=== PATIENT | male | born 1960 ===

== ENCOUNTER 2019-04-04 13:18 | Observation (INO) | payer BC ==
[~2019-04-04 13:18] MED LIST: Sodium Chloride 0.9% 10 ML Syringe FLUSH PRN
--- NOTE | 2019-04-04 13:18 | EDM.PDOC ---
ED HPI GENERAL MEDICAL PROBLEM - General Chief Complaint: Diabetic Complaint Stated Complaint: AMBULANCE Time Seen by Provider: 04/04/19 13:18 Source of Information: Reports: Patient, EMS, EMS Notes Reviewed, RN, RN Notes Reviewed History Limitations: Reports: Altered Mental Status - History of Present Illness INITIAL COMMENTS - FREE TEXT/NARRATIVE: Pt to ER per [facility]. Patient was found wandering in the halls at the [employer] where he works. EMS reports that bystanders reported that the patient appeared confused. Sat down and became unresponsive. Did not fall or hit his head. EMS reports upon arrival BS was 30, gave 1 amp of D50 and BS then was 477. En route, BS was 157. Upon arrival to the ER BS 152. EMS reports the patient was not answering questions for them, in and out of consciousness with snoring respirations. Pt is known Type 1 DM. Upon arrival pt is easily arousable. States he thinks he mixed his insulins up when he took it at lunch time while eating. Patient incontinent of urine upon arrival. Onset: Today, Sudden - Related Data Allergies Allergy/AdvReac Type Severity Reaction Status Date / Time No Known Allergies Allergy Verified 04/04/19 13:29 Home Meds: Home Meds Aspirin [Lo-Dose Aspirin EC] 81 mg PO DAILY 04/04/19 [History] Escitalopram [Lexapro] 10 mg PO DAILY 04/04/19 [History] Insulin Aspart [NovoLOG] 6 units SQ ASDIRECTED 04/04/19 [History] Insulin Glarg,Human.Rec.Analog [Lantus Solostar] 40 units SQ DAILY 04/04/19 [ History] Lisinopril 10 mg PO DAILY 04/04/19 [History] Omeprazole 20 mg PO DAILY 04/04/19 [History] atorvaSTATin [Lipitor] 40 mg PO DAILY 04/04/19 [History] ED ROS GENERAL - Review of Systems Review Of Systems: ROS reveals no pertinent complaints other than HPI. ED EXAM GENERAL NO PERIP PULSE - Physical Exam Exam: See Below Exam Limited By: Altered Mental Status General Appearance: Lethargic, Mild Distress Eye Exam: Bilateral Eye: EOMI, Normal Inspection, PERRL (3 sluggish) Ears: Normal External Exam, Hearing Grossly Normal Nose: Normal Inspection Throat/Mouth: Normal Inspection, Normal Voice, No Airway Compromise Head: Atraumatic, Normocephalic Neck: Normal Inspection, Supple, Non-Tender, Full Range of Motion Respiratory/Chest: No Respiratory Distress, Lungs Clear, Normal Breath Sounds, No Accessory Muscle Use, Chest Non-Tender, Other (snoring respirations at times) Cardiovascular: Normal Peripheral Pulses, Regular Rate, Rhythm, No Edema, No Gallop, No JVD, No Murmur, No Rub GI/Abdominal: Normal Bowel Sounds, Soft, Non-Tender, No Organomegaly, No Distention, No Abnormal Bruit, No Mass (Male) Exam: Deferred Rectal (Males) Exam: Deferred Back Exam: Normal Inspection, Full Range of Motion, NT Extremities: Normal Inspection, Normal Range of Motion, Non-Tender, Normal Capillary Refill, No Pedal Edema Neurological: Oriented, Other (easily aroused) Psychiatric: Normal Affect, Normal Mood Skin Exam: Warm, Dry, Intact, Normal Color, No Rash Lymphatic: No Adenopathy Course - Vital Signs Last Recorded V/S: Last Vital Signs Temp 97.4 F 04/04/19 14:16 Pulse 60 04/04/19 14:16 Resp 16 04/04/19 14:16 BP 164/75 H 04/04/19 14:16 Pulse Ox 98 04/04/19 14:16 - Orders/Labs/Meds Orders: Active Orders 24 hr Category Date Time Status Blood Glucose Check, Bedside [RC] ONETIME Care 04/04/19 13:17 Active EKG Documentation Completion [RC] STAT Care 04/04/19 13:15 Active Peripheral IV Care [RC] . DIRECTED Care 04/04/19 13:17 Active CULTURE BLOOD [BC] Stat Lab 04/04/19 13:29 Received CULTURE BLOOD [BC] Stat Lab 04/04/19 13:35 Received DRUG SCREEN URINE BIORAD [URCHEM] Stat Lab 04/04/19 13:15 Ordered UA RFX KATHLEEN AND CULT IF INDIC [URIN] Stat Lab 04/04/19 13:16 Ordered Dextrose 5%-0.45% NaCl [Dextrose 5%-1/2 NS] 1,000 ml Med 04/04/19 14:15 Active IV ASDIRECTED Sodium Chloride 0.9% [Saline Flush] Med 04/04/19 13:15 Active 10 ml FLUSH ASDIRECTED PRN Blood Culture x2 Reflex Set [OM.PC] Stat Oth 04/04/19 13:16 Ordered Peripheral IV Insertion Adult [OM.PC] Stat Oth 04/04/19 13:15 Ordered Medication Orders Dextrose/Sodium Chloride (Dextrose 5%-1/2 Ns) 1,000 mls @ 200 mls/hr IV ASDIRECTED SHEEBA Last Admin: 04/04/19 14:12 Dose: 200 mls/hr Sodium Chloride (Saline Flush) 10 ml FLUSH ASDIRECTED PRN PRN Reason: Keep Vein Open Labs: Laboratory Tests 04/04/19 04/04/19 04/04/19 Range/Units 13:25 13:29 13:29 WBC 9.2 (5.0-10.0) 10^3/uL RBC 4.47 L (4.6-6.2) 10^6/uL Hgb 13.6 L (14.0-18.0) g/dL Hct 40.1 (40.0-54.0) % MCV 89.7 (80-100) fL MCH 30.4 (27.0-34.0) pg MCHC 33.9 (33.0-35.0) g/dL Plt Count 272 (150-450) 10^3/uL Neut % (Auto) 65.7 (42.2-75.2) % Lymph % (Auto) 20.3 L (20.5-50.1) % Mclean % (Auto) 10.8 H (2-8) % Eos % (Auto) 2.5 (1.0-3.0) % Baso % (Auto) 0.7 (0.0-1.0) % PT (9.0-12.0) SEC INR (0.9-1.2) Sodium 140 (135-145) mmol/L Potassium 3.8 (3.6-5.0) mmol/L Chloride 104 (101-111) mmol/L Carbon Dioxide 26.0 (21.0-31.0) mmol/L Anion Gap 13.8 BUN 23 H (7-18) mg/dL Creatinine 1.4 H (0.6-1.3) mg/dL Est Cr Clr Drug Dosing 54.43 mL/min Estimated GFR (MDRD) 52 BUN/Creatinine Ratio 16.42 Glucose 134 H (74-105) mg/dL POC Glucose 152 H (70-105) mg/dl Lactic Acid (0.5-2.2) mmol/L Calcium 8.7 (8.4-10.2) mg/dl Total Bilirubin 0.4 (0.2-1.0) mg/dL AST 23 (10-42) IU/L ALT 21 (10-60) IU/L Alkaline Phosphatase 78 (42-121) IU/L Troponin I < 0.02 (0.00-0.02) ng/ml Total Protein 6.7 (6.7-8.2) g/dl Albumin 3.7 (3.2-5.5) g/dl Globulin 3.0 Albumin/Globulin Ratio 1.23 Ethyl Alcohol < 5 mg/dL 04/04/19 04/04/19 Range/Units 13:29 13:29 WBC (5.0-10.0) 10^3/uL RBC (4.6-6.2) 10^6/uL Hgb (14.0-18.0) g/dL Hct (40.0-54.0) % MCV (80-100) fL MCH (27.0-34.0) pg MCHC (33.0-35.0) g/dL Plt Count (150-450) 10^3/uL Neut % (Auto) (42.2-75.2) % Lymph % (Auto) (20.5-50.1) % Mclean % (Auto) (2-8) % Eos % (Auto) (1.0-3.0) % Baso % (Auto) (0.0-1.0) % PT 9.4 (9.0-12.0) SEC INR 0.9 (0.9-1.2) Sodium (135-145) mmol/L Potassium (3.6-5.0) mmol/L Chloride (101-111) mmol/L Carbon Dioxide (21.0-31.0) mmol/L Anion Gap BUN (7-18) mg/dL Creatinine (0.6-1.3) mg/dL Est Cr Clr Drug Dosing mL/min Estimated GFR (MDRD) BUN/Creatinine Ratio Glucose (74-105) mg/dL POC Glucose (70-105) mg/dl Lactic Acid 2.1 (0.5-2.2) mmol/L Calcium (8.4-10.2) mg/dl Total Bilirubin (0.2-1.0) mg/dL AST (10-42) IU/L ALT (10-60) IU/L Alkaline Phosphatase (42-121) IU/L Troponin I (0.00-0.02) ng/ml Total Protein (6.7-8.2) g/dl Albumin (3.2-5.5) g/dl Globulin Albumin/Globulin Ratio Ethyl Alcohol mg/dL Meds: Medications Generic Name Dose Route Start Last Admin Trade Name Freq PRN Reason Stop Dose Admin Dextrose/Sodium Chloride 1,000 mls @ 200 mls/hr 04/04/19 14:15 04/04/19 14:12 Dextrose 5%-1/2 Ns IV 200 mls/hr ASDIRECTED SHEEBA Administration Sodium Chloride 10 ml 04/04/19 13:15 Saline Flush FLUSH ASDIRECTED PRN Keep Vein Open - Radiology Interpretation Free Text/Narrative:: Head CT wo contrast: Negative emergency unenhanced CT scan head and brain See rad report Departure - Departure Time of Disposition: 15:07 Disposition: Refer to Observation Condition: Fair Clinical Impression: Hypoglycemia Type 1 diabetes Qualifiers: Diabetes mellitus complication status: with hypoglycemia Diabetes mellitus complication detail: without coma Qualified Code(s): E10.649 - Type 1 diabetes mellitus with hypoglycemia without coma - Discharge Information *PRESCRIPTION DRUG MONITORING PROGRAM REVIEWED*: No *COPY OF PRESCRIPTION DRUG MONITORING REPORT IN PATIENT LIBERTAD: No - My Orders Last 24 Hours: My Active Orders 04/04/19 13:15 EKG Documentation Completion [RC] STAT DRUG SCREEN URINE BIORAD [URCHEM] Stat Sodium Chloride 0.9% [Saline Flush] 10 ml FLUSH ASDIRECTED PRN Peripheral IV Insertion Adult [OM.PC] Stat 04/04/19 13:16 UA RFX KATHLEEN AND CULT IF INDIC [URIN] Stat Blood Culture x2 Reflex Set [OM.PC] Stat 04/04/19 13:17 Blood Glucose Check, Bedside [RC] ONETIME Peripheral IV Care [RC] . DIRECTED 04/04/19 13:29 CULTURE BLOOD [BC] Stat 04/04/19 13:35 CULTURE BLOOD [BC] Stat 04/04/19 14:15 Dextrose 5%-0.45% NaCl [Dextrose 5%-1/2 NS] 1,000 ml IV ASDIRECTED - Assessment/Plan Last 24 Hours: My Active Orders 04/04/19 13:15 EKG Documentation Completion [RC] STAT DRUG SCREEN URINE BIORAD [URCHEM] Stat Sodium Chloride 0.9% [Saline Flush] 10 ml FLUSH ASDIRECTED PRN Peripheral IV Insertion Adult [OM.PC] Stat 04/04/19 13:16 UA RFX KATHLEEN AND CULT IF INDIC [URIN] Stat Blood Culture x2 Reflex Set [OM.PC] Stat 04/04/19 13:17 Blood Glucose Check, Bedside [RC] ONETIME Peripheral IV Care [RC] . DIRECTED 04/04/19 13:29 CULTURE BLOOD [BC] Stat 04/04/19 13:35 CULTURE BLOOD [BC] Stat 04/04/19 14:15 Dextrose 5%-0.45% NaCl [Dextrose 5%-1/2 NS] 1,000 ml IV ASDIRECTED
[2019-04-04 14:03] LABS: ANION GAP 13.8; CHLORIDE,CL 104 mmol/L (101-111); SODIUM,NA 140 mmol/L (135-145)
[2019-04-04] MEDS: Dextrose 5%-0.45% NaCl 1,000 ML IV SCH ×2 (14:12→19:20)
--- NOTE | 2019-04-04 14:22 | CT ---
EXAMINATION: Head wo Cont SEX: Male AGE: 59 years CLINICAL HISTORY: 59-year-old confused and unresponsive male. No previous exams immediately available for comparison. Scan technique: Volume acquisition of data emergency unenhanced CT scan of the head and brain obtained with the patient lying supine on the Siemens multi slice scanner [place], [place]. All data archived in the PAC system for storage, reformatting axial/sagittal/coronal planes and study. Interpretation: 1. Bilateral matching basal ganglia calcifications, physiologic midline pineal and symmetric choroid plexus calcifications. 2. Uniformly thick bony calvarium without sign of skull fracture, underlying brain contusion or epidural/subdural hematoma. 3. Symmetric clear pneumatization of the paranasal and mastoid sinuses. 4. No supratentorial or posterior fossa mass lesion. No hydrocephalus. 5. No focal areas of ischemic infarct or encephalomalacia. 6. No sign of acute intracerebral/intraventricular/subarachnoid bleed. 7. Symmetric mild atrophy pattern. CONCLUSION: Negative emergency unenhanced CT scan head and brain
[2019-04-04] MEDS ORDERED: Ondansetron 4 MG Tab.DIS PO PRN (16:34)
[2019-04-04] MEDS ORDERED: Acetaminophen 325 MG Tab PO PRN (16:34)
[2019-04-04] MEDS ORDERED: 50% Dextrose in Water 50 ML Syringe IVPUSH PRN (16:38)
--- NOTE | 2019-04-04 17:01 | HP ---
CHIEF COMPLAINT: Confusion. HISTORY OF PRESENTING ILLNESS: Mr. Nguyễn Murphy is a 59-year-old male with a medical history significant for diabetes mellitus, has been on insulin regimen, middle school math teacher by profession, was brought in with acute encephalopathic state and was noted to have severe hypoglycemic episode and needing admission to the hospital for further evaluation and treatment. At this time, the patient says that the last thing he remembered was he was asking the students to form a line to go have lunch, and in the process, he felt hypoglycemic and he went to his desk and snatched some starburst, 2 of them, and the next thing he remembers is he is at the hospital wheeling in. He does not remember quite well what happened, but as per the ER staff and as per the EMS, the patient was wandering around in the school, not knowing what is going on, and when the EMS went there, he had severe hypoglycemic episode with blood sugars less than 70, he was given D50 amp, and was taken to the ER. While in the ER, the patient received some more D50 and D5, and the patient appeared to be drowsy and sleepy, so being admitted to the hospital. At this time, the patient denies any fevers or chills in the last few days. No complaints of nausea, vomiting, or diarrhea in the last few days. No complaints of chest pain. No complaints of shortness of breath. No complaints of headache. No complaints of changes in the vision. Had similar episodes in the past. This was more than 12 years back where he had a hypoglycemic reaction. He claims that maybe he mistook the Humalog for Lantus and took 40 units of Humalog where he is supposed to take only 8 units and 40 units of Lantus, which could have caused this severe hypoglycemic reaction. The patient denied any history of chest pains on exertion. No history of dyspnea on exertion. No history of orthopnea or paroxysmal nocturnal dyspnea. The patient denied any history of hematemesis, hematochezia, or melenic stools. Normal bowel and bladder habits otherwise. REVIEW OF SYSTEMS: A complete review of system including skin, ear, nose, and throat, cardiovascular system, respiratory system, gastrointestinal system, genitourinary system, hematology, oncology, neurology, allergy, immunology, constitutional were all evaluated and were negative except for the above-said notes. PAST MEDICAL HISTORY: Significant for diabetes mellitus, carpal tunnel syndrome. PAST SURGICAL HISTORY: Significant for carpal tunnel release. SOCIAL HISTORY: Denies any history of smoking tobacco. No history of alcohol intake. FAMILY HISTORY: Significant for cancer in his mother and diabetes in his son. ALLERGIES: No known drug allergies. HOME MEDICATIONS: Lipitor 40 mg daily, omeprazole 20 mg daily, lisinopril 10 mg daily, NovoLog 6 units with each meals, and Lexapro 10 mg daily. PHYSICAL EXAMINATION: Vital Signs: Temperature of 96.9, pulse of 62, blood pressure 155/68, respiratory rate of 18, and saturating at 99%. General Appearance: The patient is well oriented to time, place, and person. Follows commands spontaneously. Cardiovascular: S1, S2 heard with normal intensity. No gallops. Respiratory: Clear to auscultation bilaterally. No wheeze. No crepitations. Abdomen: Soft. Bowel sounds positive. Nontender. No rigidity. Extremities: No edema in bilateral lower extremities. Neurologic: No gross focal neurological deficits. LABORATORY DATA: WBC 9.2, hemoglobin 13.6, hematocrit 40.1, platelet count 272. INR 0.9. Sodium 140, potassium 3.8, chloride 104, bicarb 26, BUN 23, creatinine 1.4, glucose 134, lactic acid 2.1, AST 23, ALT 21, alkaline phosphatase 78. Urinalysis negative for nitrites, negative for leukocytes. Urine toxicology screen negative. ASSESSMENT: 1. Acute encephalopathic state. 2. Hypoglycemic episode. 3. Hyperlipidemia. PLAN: 1. Acute encephalopathy. This is mostly metabolic in nature from severe hypoglycemic reaction, which seems to be improved at this time. We will closely follow the patient. 2. Hypoglycemia. The patient continued to have hypoglycemia in the ER requiring D5 normal saline infusion. We will continue the same. We will gradually wean him off the D5 solution and check his fingersticks. We will hold up the insulin until we have a better glucose. 3. Deep vein thrombosis prophylaxis. We will have him on Lovenox for deep vein thrombosis prophylaxis. 4. Prerenal azotemia. The patient was noted to have elevated BUN and creatinine. Unsure if this is his baseline. We will continue with IV fluids and recheck a basic metabolic panel in the a.m. 5. Diabetes mellitus, uncontrolled. The patient was noted to have low blood sugars. This is mainly from mistaking his Humalog for Lantus and taking high dose of Humalog. We will get a hemoglobin A1c at this time. We will closely follow. 6. Code status. The patient wants to be full code. 7. Discussed with ER staff regarding the plan of care. Reviewed the labs and medications. Reviewed the old charts. [facility] /[id number]
[2019-04-04] MEDS: Insulin Lispro 100 Units/ML 3 ML Vial SUBCUT SCH ×2 (17:10→21:20)
[2019-04-05 06:50] LABS: ANION GAP 10.1
[2019-04-05] MEDS ORDERED: Omeprazole 20 MG Cap.CR PO SCH (09:00)
[2019-04-05] MEDS ORDERED: Aspirin 81 MG Tab.EC PO SCH (09:00)
[2019-04-05] MEDS ORDERED: Escitalopram 10 MG Tab PO SCH (09:00)
[2019-04-05] MEDS ORDERED: Enoxaparin 40 MG/0.4 ML Syringe SUBCUT SCH (09:00)
[2019-04-05] MEDS ORDERED: atorvaSTATin 20 MG Tab PO SCH (09:00)
[2019-04-05] MEDS: Insulin Lispro 100 Units/ML 3 ML Vial SUBCUT SCH ×2 (09:02→13:09)
[2019-04-05] MEDS ORDERED: Insulin Lispro 100 Units/ML 3 ML Vial SUBCUT SCH (12:00)
[2019-04-05] MEDS ORDERED: Insulin Glarg,Human.Rec.Analog 100 UNIT/ML ML SUBCUT SCH (12:00)
[2019-04-05] MEDS ORDERED: Insulin Glarg,Human.Rec.Analog 100 UNIT/ML ML SUBCUT ONE (13:00)
[2019-04-05] MEDS ORDERED: INSULIN GLARG HUMAN REC ANALOG SUBCUT ONE (13:00)
--- NOTE | 2019-04-05 17:32 | DISCH ---
ADMITTING DIAGNOSIS: Acute encephalopathy, metabolic from hypoglycemic reaction. DISCHARGE DIAGNOSES: 1. Acute encephalopathy from metabolic reason with hypoglycemic reaction, resolved. 2. Type 2 diabetes mellitus, uncontrolled. HISTORY OF PRESENTING ILLNESS: Mr. Nguyễn Murphy is a 59-year-old male with a medical history significant for diabetes mellitus, was admitted to the hospital with increased confusional state, acute encephalopathic state with underlying metabolic cause from severe hypoglycemic reaction. The patient mistook his Humalog for Lantus and took 40 units of Humalog which caused severe hypoglycemic reaction with his blood sugars dropping down below 70 and causing confusional state. The patient was given D50 and also started on D5 on this admission. He was admitted to the hospital and was continued on D5 after which his blood sugars normalized and elevated. The patient was started back on the insulin regimen. The patient claims that he mistook his Humalog for Lantus and given higher doses. He is advised to tape the Lantus pen so that he would know the difference between the Humalog and the Lantus pen, which he understands and verbalized the same. He is discharged to home in stable condition. He remained hemodynamically stable on this admission. He is advised to follow with his primary care physician in a week of time. PHYSICAL EXAMINATION: On the day of discharge. Vital Signs: Temperature of 98.5, pulse of 61, blood pressure of 148/64, respiratory rate of 18, saturating at 99% on room air. General Appearance: The patient is well oriented to time, place, and person. Follows commands spontaneously. Cardiovascular System: S1, S2 heard with normal intensity. No gallops. Respiratory: Clear to auscultation bilaterally. No wheeze. No crepitations. Abdomen: Soft. Bowel sounds positive. Nontender. No rigidity. Extremities: No edema in bilateral lower extremities. DISCHARGE MEDICATIONS: Include aspirin 81 mg daily, Lexapro 10 mg daily, Lantus 40 units subcutaneous daily, NovoLog 6 units subcu with each meals, lisinopril 10 mg daily, omeprazole 20 mg daily, Lipitor 40 mg daily. CONDITION ON ADMISSION: Poor. CONDITION ON DISCHARGE: Stable. DISPOSITION: Discharged to home. ACTIVITY: As tolerated. DIET: Consistent with carbohydrate diet. FOLLOWUP: With primary care physician in next 1 week of time. [facility] /[id number]
== END 2019-04-05 13:40 | disposition home or self-care (01) ==
LOC: DL.ED 13:18 → DL.MS 14:37
PROVIDERS: ADMIT Internal Medicine; ATTEND Internal Medicine
DX: T38.3X1A Poisoning by insulin and oral hypoglycemic [antidiabetic] drugs, accidental (unintentional), initial encounter (principal); E11.649 Type 2 diabetes mellitus with hypoglycemia without coma; G93.41 Metabolic encephalopathy; E78.5 Hyperlipidemia, unspecified; R79.89 Other specified abnormal findings of blood chemistry; Z79.84 Long term (current) use of oral hypoglycemic drugs
CPT/HCPCS: 36415; 70450; 80048; 80053; 80305-QW; 81001; 82962; 83036; 83605; 84132; 84484; 85025; 85610; 87040; 93005; 96360; 96361; 99285-25; A9270-GY; G0378; G0480; J1815; J1815-GY; J7042